=== PATIENT | female | born 1990 | race Caucasian/White ===

== ENCOUNTER 2024-06-30 16:29 | Emergency (ER) | payer OTHER, SELFPAY ==
--- NOTE | ~2024-06-30 | XR_ITS ---
CLINICAL HISTORY: fever 1 view chest x-ray Comparison: None Findings: The lungs are clear. Heart size is normal. No acute fracture. IMPRESSION: 1. No acute findings. This document has been electronically signed by: Matilda Prather MD on 06/30/2024 17:59:38
--- NOTE | 2024-06-30 17:04 | ED_ITS ---
HPI - Allergic Reaction General Chief complaint: Allergic Reaction Stated complaint: allergic reaction bug bite Time Seen by Provider: 06/30/24 17:15 Source: patient Mode of arrival: ambulatory Limitations: no limitations History of Present Illness HPI narrative: This is a 33-year-old woman with a past medical history of asthma, seasonal allergies who presents for evaluation of rash. She states the rash has been present for the last 2 days. She states at times it is pruritic, but mostly painful. She states she is not sure she was bit by something, but states no no blood/tick bite. She states she had a fever to 102? F yesterday. She states having rash to her arms, torso and legs and states that the rash on her right arm is particularly bothersome and sore. She states no new drug/medication exposures or prescription medications. She states no recent history of febrile illness outside of fever yesterday. She state no abdominal pain, nausea/vomiting, diarrhea or urinary symptoms. She states no sore throat or odynophagia. She states no chest pain. She states feeling short of breath at times. She states no pain with inspiration. She states no back pain. She states no cough or congestion. She states no history of sexually transmitted infection or HSV. She states no eye pain or visual disturbance. Current medications: Albuterol, Zyrtec Related Data Previous Rx's ?Medication ?Instructions ?Recorded acyclovir 400 mg tablet 400 mg PO TID 10 days #30 tabs 06/30/24 ferrous sulfate 324 mg (65 mg 324 mg PO Q OTHER DAY #30 tabs 06/30/24 iron) tablet,delayed release prednisone 10 mg tablet 10 mg PO DIRECTED #57 tabs 06/30/24 Allergies Allergy/AdvReac Type Severity Reaction Status Date / Time Penicillins [PCN] Allergy Hives Verified 06/30/24 17:06 shellfish derived [shellfish] Allergy Anaphylaxis Verified 06/30/24 17:06 Review of Systems 2 Review of Systems: ROS as per HPI [facility] Social History Social History Smoked in Last 30 Days: No Use of substances other than those prescribed or required for medical reasons: No Advance Directives: No Advance Directives Information Provided: Yes Do you have a plan to hurt others: No Plan Patient : No Physical Exam ED Vital Signs: Vital Signs - 24 hr 06/30/24 17:05 06/30/24 19:31 06/30/24 20:15 Temperature 98.2 F 98.0 F 98.0 F Pulse Rate 108 H 92 92 Respiratory Rate 16 18 18 Blood Pressure 125/71 116/68 116/68 Pulse Oximetry 98 98 98 Oxygen Delivery Method Room Air Room Air Room Air 06/30/24 20:41 Temperature 98.0 F Pulse Rate 92 Respiratory Rate 18 Blood Pressure 116/68 Pulse Oximetry 98 Oxygen Delivery Method Room Air BMI result Body Mass Index 38.2 Gen: NAD, AOx3 HEENT: NCAT, EOMI, normal conjunctiva, moist oral mucosa, uvula midline without edema, no posterior oropharynx erythema/exudates, no buccal lesions, no mucositis CV: RRR Pulm: CTAB, no increased work of breathing GI: Soft, NTND, no rebound, guarding or rigidity Neuro: Grossly non focal Skin: Warm, dry, erythematous macules, papules targetoid lesions with 3 zones of collar distributed amongst the bilateral upper extremities, coalescing at times and anterior/posterior torso (TBSA less than 5%), 1 serous filled blister to the right posterior arm, no purpura or petechiae Course Course Course Narrative: This is a Rapid Medical Exam performed in triage by Sharron Damico PA-C. Full HPI, ROS and PE to be performed by primary ED provider. 33-year-old female w/PMHx asthma presenting to the ED c/o suspected allergic rxn to ?something since Wednesday with change in voice, SOB, & pruritic/painful rash. Took Benadryl this AM. Admits she did recieve her childhood vaccinations PE: Uvula midline, taking in complete sentences, Lungs CTA, +diffuse hives with some vesicles noted Plan: Labs, IV meds Medications Administered Discontinued Medications Generic Name Dose Route Start Last Admin Trade Name Freq PRN Reason Stop Dose Admin Acyclovir 400 mg 06/30/24 20:03 06/30/24 20:10 Acyclovir 200 Mg Capsule PO 06/30/24 20:04 400 mg ONCE ONE Administration Diphenhydramine HCl 50 mg 06/30/24 17:10 06/30/24 17:35 Diphenhydramine Hcl 50 Mg/Ml Vial IVPUSH 06/30/24 17:11 50 mg ONCE ONE Administration Sodium Chloride 1,000 mls @ 999 mls/hr 06/30/24 17:30 06/30/24 18:37 Ns IV 06/30/24 18:30 Infused .Q1H1M MURIEL Infusion Ketorolac Tromethamine 15 mg 06/30/24 17:22 06/30/24 17:34 Ketorolac Tromethamine 15 Mg/Ml Vial IVPUSH 06/30/24 17:23 15 mg ONCE ONE Administration Prednisone 60 mg 06/30/24 20:03 06/30/24 20:10 Prednisone 20 Mg Tablet PO 06/30/24 20:04 60 mg ONCE ONE Administration Medical Decision Making Medical Decision Making MDM Narrative: Differential diagnosis includes, but is not limited to viral exanthem, erythema multiforme minor, erythema migrans. 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 Given lack of mucous membrane involvement this is not consistent with erythema multiforme major. Patient is afebrile and hemodynamically stable on room air. Exam as above most consistent with erythema multiforme for which patient is treated empirically with prednisone and acyclovir. Tick-borne illness panel and pending at time of discharge. Patient otherwise treat supportively with Benadryl and Toradol. I reviewed labs as below revealing of microcytic, hypochromic anemia with hemoglobin 7.3, RDW 21.7. Patient reported history of iron deficiency anemia and has previously been on iron pills. She states no recently and reports that her primary care doctor as previously given her short prescription for iron pills. She states she has follow up with her PCP next week. Shared decision is making is performed and we will plan to resume ferrous sulfate every other day and have patient follow up with [facility] [place]. She denies trauma or acute blood loss. There is no indication for tranfusion at this time. On re-examination, patient is well-appearing and in no acute distress. ?Patient states feeling well. There is no indication for further emergent evaluation in this otherwise well-appearing patient as above. ?Patient is provided written and verbal instructions, educational materials, recommendations for outpatient follow-up, prescription for prednisone taper/acyclovir/ferrous sulfate, referral to Hematology, strict return precautions and teach back is performed. ?Patient states understanding and agreement with plan of care. ?Patient is discharged home in stable and improved condition. Critical Care Time: A total of 45 minutes spent in direct patient care with coordinating critical resuscitation, procedures, reviewing records, discussing with consultants, reviewing labs, and/or managing patient. Admission/Observation Consideration of admission/observation: Escalation of care including admission/observation considered Lab Data MDM Lab Attestation statement: I reviewed the patient's lab results. CBC as below and notable for anemia with hemoglobin 7.3, no previous for comparison. Otherwise no cell line derangements, metabolic panel reassuring. Tick-borne panel a HSV 1/2 pending at time of discharge. Influenza, RSV, COVID- 19 and strep test negative. 06/30/24 17:33 06/30/24 17:33 Labs: Lab Results 06/30/24 06/30/24 Range/Units 17:33 18:00 WBC 7.4 (4.8-10.8) X10*3/uL RBC 4.92 (4.20-5.50) X10*6/uL Hgb 7.3 L (12.0-16.0) g/dl Hct 27.9 L (37.0-47.0) % MCV 56.7 L (80.0-98.0) fL MCH 14.8 L (27.0-33.0) pg MCHC 26.2 L (31.0-35.0) g/dl RDW 21.7 H (11.0-16.0) % Plt Count 270 (160-400) X10*3/uL MPV Not Reportable Immature Gran % (Auto) 0.4 (0.0-0.4) % Neut % (Auto) 55.8 (45-73) % Lymph % (Auto) 31.4 (20-40) % [place] % (Auto) 8.5 (2-11) % Eos % (Auto) 3.2 (0-4) % Baso % (Auto) 0.7 (0-2) % Lymph # (Auto) 2.3 (1.2-4.9) X10*3/uL [place] # (Auto) 0.6 (0.1-1.2) X10*3/uL Eos # (Auto) 0.2 (0.0-0.4) X10*3/uL Baso # (Auto) 0.1 (0.0-0.2) X10*3/uL Abs Immat Gran (auto) 0.03 (0.00-0.03) X10*3/uL Absolute Neuts (auto) 4.1 (2.0-8.3) x10*3/uL Absolute Nucleated RBC 0.000 (0.0-0.012) X10*3/uL Nucleated RBC % (auto) 0.0 (0.0-0.2) /100WBC Sodium 140 (135-145) mmol/L Potassium 3.3 (3.3-5.1) mmol/L Chloride 109 H (96-108) mmol/L Carbon Dioxide 21 L (22-29) mmol/L Anion Gap 13 (12-20) BUN 15 (9-16) mg/dL Creatinine 0.67 (0.5-1.4) mg/dL Estim Creat Clear Calc 155.2 Estimated GFR > 60 Random Glucose 83 (60-115) mg/dL Calcium 8.7 (8.4-10.2) mg/dL Iron 15 L (30-160) mcg/dL TIBC 409 (228-428) mcg/dL % Saturation 4 L (15-50) % Unsat Iron Binding 394 ug/dL Total Bilirubin 0.3 (0.0-1.0) mg/dL Direct Bilirubin 0.1 (0.0-0.5) mg/dL AST 30 (5-31) U/L ALT 19 (0-31) U/L Alkaline Phosphatase 56 (39-117) U/L Total Creatine Kinase 123 (26-140) U/L Total Protein 7.9 (6.5-8.0) g/dL Albumin 4.1 (3.5-5.0) g/dL Influenza Type A (PCR) NEGATIVE (Negative) Influenza Type B (PCR) NEGATIVE (Negative) RSV RNA Qual (PCR) NEGATIVE (Negative) SARS-CoV-2 RNA (RT-PCR) NEGATIVE (Negative) S. pyogenes GrpA [place] Negative (Negative) Independent Interpretation I performed an independent interpretation of an: EKG and Plain X-Ray Interpretation: EKG shows sinus rhythm at 87 beats per minute, OK 154, QRS 100, QTC 492, no STEMI. Chest x-ray shows no pleural effusion, focal consolidation or pneumothorax Radiology Impression Discussion of test interpretation with radiology: I have reviewed the radiologist's reading. Radiologist Impression: IMPRESSION: 1. No acute findings. This document has been electronically signed by: Matilda Prather MD on 06/30/2024 17:59:38 Dictated By: Matilda Prather MD Signed By: <Electronically signed by Matilda Prather MD in OV> 06/30/24 1800 Discharge Plan Discharge Clinical Impression: Rash, Anemia Patient Disposition: Home, Self-Care Instructions: Acute Rash (ED) Additional Instructions: You were seen and evaluated in the emergency room for a rash. Your rash was most consistent with erythema multiforme minor. This rash is sometimes causes by infections, medications and sometimes it is unclear what triggered your rash. You were started on an anti-viral and prednisone for this. You may also take Benadryl for your symptoms at night or other non-sedating antihistamines (such as Claritin or Zyrtec) during the day. Your emergency room evaluation was overall reassuring. We are still waiting for some of your blood test results (tick borne illnesses and HSV). You will be notified of any abnormal results. As we discussed, your hemoglobin was low at 7.3 and because of your history of iron deficiency anemia a prescription for iron pills has been sent to your pharmacy. Please take 1 pill every other day. You are given a referral to follow up with a doctor that specializes in diseases of the blood (such as anemia) i.e. Hematology. Please follow up in 1-2 weeks. Your blood work including kidney function, electrolytes, liver function was otherwise reassuring. You tested negative for Influenza, RSV, COVID-19 and Strep. Please follow up with your primary care doctor in 1 week. Return to the emergency room if you develop any new concerns or symptoms. Prescriptions: New acyclovir 400 mg tablet 400 mg PO TID 10 Days Qty: 30 0RF prednisone 10 mg tablet 10 mg PO DIRECTED Qty: 57 0RF Rx Instructions: see taper instructions Please take 60mg daily for 2 days, 50mg daily for 3 days, 40mg daily for 3 days, 30mg daily for 3 days, 20mg daily for 3 days, 10mg daily for 3 days ferrous sulfate 324 mg (65 mg iron) tablet,delayed release (DR/EC) 324 mg PO Q OTHER DAY Qty: 30 0RF Rx Instructions: Take 1 pill every other day Referrals: [facility] [place] Oncology/Hematology [Provider Group] Interventions: ED Discharge Assessment Last Done: 06/30/24 20:41 Discharge Date/Time: 06/30/24 20:43 Print Language: Yoruba
[2024-06-30 17:05] VITALS: BP 125/71; PULSE 108; RESP 16; TEMP 36.8; O2SAT 98; BMI 38.2
--- NOTE | 2024-06-30 17:29 | ECG_ITS ---
Test Reason : SOB Blood Pressure : */* mmHG Vent. Rate : 97 BPM Atrial Rate : 97 BPM P-R Int : 154 ms QRS Dur : 100 ms QT Int : 388 ms P-R-T Axes : 56 34 57 degrees QTcB Int : 492 ms Normal sinus rhythm Minimal voltage criteria for LVH, may be normal variant ( [place] product ) Prolonged QT Abnormal ECG No previous ECGs available Referred By: Krishna Osuna Electronically Signed By: YIMI BASSETT MD
[2024-06-30] MEDS: Ketorolac Tromethamine 15 MG/ML VIAL IVPUSH (17:34)
[2024-06-30] MEDS: diphenhydrAMINE HCL 50 MG/ML VIAL IVPUSH (17:35)
[2024-06-30] MEDS: 0.9 % Sodium Chloride 1,000 ML 999 ML IV (17:36)
[2024-06-30 17:40] LABS: MANUAL DIFF FLAG NO
[2024-06-30 17:57] LABS: Alanine Aminotransferase 19 U/L (0-31); Albumin Level 4.1 g/dL (3.5-5.0); Alkaline Phosphatase 56 U/L (39-117); Anion Gap 13 (12-20); Aspartate Amino Transferase 30 U/L (5-31); Bilirubin Direct 0.1 mg/dL (0.0-0.5); Bilirubin Total 0.3 mg/dL (0.0-1.0); Blood Urea Nitrogen 15 mg/dL (9-16); Calcium 8.7 mg/dL (8.4-10.2); Carbon Dioxide 21 mmol/L (22-29); Chloride 109 mmol/L (96-108); Creatinine Clr Calc Pharmacy 155.2; Estimated Glomerular Filt Rate > 60; Glucose Random 83 mg/dL (60-115); Potassium 3.3 mmol/L (3.3-5.1); Sodium 140 mmol/L (135-145); Total Protein 7.9 g/dL (6.5-8.0)
[2024-06-30 18:16] LABS: Basophils Absolute Auto 0.1 X10*3/uL (0.0-0.2); Basophils Percent Auto 0.7 % (0-2); Eosinophils Absolute Auto 0.2 X10*3/uL (0.0-0.4); Eosinophils Percent Auto 3.2 % (0-4); Hematocrit 27.9 % (37.0-47.0); Hemoglobin 7.3 g/dl (12.0-16.0); Imm Gran Abs Auto 0.03 X10*3/uL (0.00-0.03); Imm Gran Pct Auto 0.4 % (0.0-0.4); Lymphocytes Absolute Auto 2.3 X10*3/uL (1.2-4.9); Lymphocytes Percent Auto 31.4 % (20-40); Mean Corpuscular HGB Conc 26.2 g/dl (31.0-35.0); Mean Corpuscular Hemoglobin 14.8 pg (27.0-33.0); Monocytes Absolute Auto 0.6 X10*3/uL (0.1-1.2); Monocytes Percent Auto 8.5 % (2-11); Neutrophils Absolute Auto 4.1 x10*3/uL (2.0-8.3); Neutrophils Percent Auto 55.8 % (45-73); Platelet Count 270 X10*3/uL (160-400); Red Blood Count 4.92 X10*6/uL (4.20-5.50); Red Cell Distribution Width 21.7 % (11.0-16.0); White Blood Count 7.4 X10*3/uL (4.8-10.8)
[2024-06-30 18:17] LABS: Mean Corpuscular Volume 56.7 fL (80.0-98.0)
[2024-06-30 18:35] LABS: IDNOW Serial# 55D5AD1C; Strep A Nucleic Acid Negative (Negative)
[2024-06-30 18:43] LABS: Influenza A PCR NEGATIVE (Negative); Influenza B PCR NEGATIVE (Negative); Resp Syncy Virus RNA Qual PCR NEGATIVE (Negative); SARS COV2 PCR INHOUSE NEGATIVE (Negative)
[2024-06-30 19:31] VITALS: BP 116/68; PULSE 92; RESP 18; TEMP 36.7; O2SAT 98
[2024-06-30] MEDS: Acyclovir 200 MG CAPSULE 400 MG PO (20:10)
[2024-06-30] MEDS: predniSONE 20 MG TABLET 60 MG PO (20:10)
[2024-06-30 20:15] VITALS: BP 116/68; PULSE 92; RESP 18; TEMP 36.7; O2SAT 98
[2024-06-30 20:38] LABS: Iron 15 mcg/dL (30-160); Percent Iron Saturation 4 % (15-50); Total Iron Binding Capacity 409 mcg/dL (228-428); Unsaturated Iron Binding 394 ug/dL
[2024-06-30 20:41] VITALS: BP 116/68; PULSE 92; RESP 18; TEMP 36.7; O2SAT 98
[2024-07-03 23:24] LABS: Lyme Abs Screen <0.90 index
[2024-07-04 00:18] LABS: Babesia IgG <1:64 titer (<1:64); Babesia IgM <1:20 titer (<1:20)
[2024-07-04 06:49] LABS: Herpes Simplex Type 2 IgG <0.90 index
[2024-07-04 16:38] LABS: A. Phagocytophilum Ab IgG <1:64 (<1:64); A. Phagocytophilum Ab IgM <1:20 (<1:20); E. Chaffeensis Ab IgG <1:64 (<1:64); E. Chaffeensis Ab IgM <1:20 (<1:20)
== END 2024-06-30 20:43 | disposition home or self-care (01) ==
PROVIDERS: Physician Assistant; Emergency Provider Emergency Medicine
DX: L29.9 Pruritus, unspecified (principal); R21 Rash and other nonspecific skin eruption; D64.9 Anemia, unspecified; R50.9 Fever, unspecified; R06.02 Shortness of breath; R94.31 Abnormal electrocardiogram [ECG] [EKG]; Z79.899 Other long term (current) drug therapy; Z03.818 Encounter for observation for suspected exposure to other biological agents ruled out
CPT/HCPCS: 0241U; 36415; 71045; 80048; 80076; 82550; 83540; 85025; 86617; 86618; 86666; 86695; 86696; 86753; 87651; 93005; 96361; 96374; 96375; 99284; 99285; J1200; J1885

== ENCOUNTER → 2024-06-30 17:25 | Outpatient (BNV) | payer OTHER, SELFPAY | PROVIDERS: Emergency Provider Emergency Medicine; Visit Provider Radiology Diagnostic Radiology | DX: R50.9 Fever, unspecified (principal) | CPT/HCPCS: 71045 ==

== ENCOUNTER → 2024-06-30 17:29 | Outpatient (BNV) | payer OTHER, SELFPAY | PROVIDERS: Emergency Provider Emergency Medicine; Visit Provider Internal Medicine Cardiovascular Disease | DX: R94.31 Abnormal electrocardiogram [ECG] [EKG] (principal); R06.02 Shortness of breath | CPT/HCPCS: 93010 ==